=== PATIENT | female | born 1955 | race Two or more races ===

== ENCOUNTER → 2024-10-06 | Outpatient (CLI) | payer MEDICARE, MEDICAID, SELFPAY ==
--- NOTE | 2024-10-06 09:00 | XR_ITS ---
Examination: Esophagram standard Fluoroscopy AP spot fluoroscopic films of the esophagus Upright PA chest single view Soft tissue lateral neck single view Exam date and time: October 06, 2024 0956 hours INDICATIONS: Difficulty swallowing throat pain one year TECHNIQUE AND FINDINGS: Upright PA chest demonstrates mild accentuation of bronchovascular markings Soft tissue lateral neck states mild to moderate cervical spinal stenosis normal epiglottis Patient swallowed thin barium with 18 spot fluoroscopic films of the esophagus obtained Fluoroscopy 0.16 minutes Primary peristaltic esophageal waves noted Mild intermittent gastroesophageal reflux No esophageal ulceration or constricting esophageal lesion No stricture at the gastroesophageal junction IMPRESSION: Mild intermittent gastroesophageal reflux
== END | disposition home or self-care (01) ==
LOC: CDIM 09:15
PROVIDERS: PCP Internal Medicine Hospice and Palliative Medicine; Referring Provider Internal Medicine Hospice and Palliative Medicine; Visit Provider Internal Medicine Hospice and Palliative Medicine
DX: K21.9 Gastro-esophageal reflux disease without esophagitis (principal)
CPT/HCPCS: 74220